=== PATIENT | male | born 1995 | race Caucasian/White ===

== ENCOUNTER 2019-10-13 18:05 | Emergency (ER) | payer OTHER, MEDICAID, SELFPAY ==
[2019-10-13 18:24] VITALS: BP 123/72; PULSE 55; RESP 18; TEMP 37; O2SAT 100
--- NOTE | 2019-10-13 18:28 | ED.GENADULT ---
HPI - General Adult General Chief complaint: Wound/Laceration Stated complaint: lac over right eye Time Seen by Provider: 10/13/19 18:28 Source: patient and family Mode of arrival: ambulatory Limitations: physical limitation (Patient has history of autism) History of Present Illness HPI narrative: 23-year-old male patient presents to the [facility] with complaints of a laceration over the right eye. Mother states that patient does have a history of autism and she is unsure exactly how he obtained a laceration. Mother states that she is unsure when his last tetanus shot was. Patient denies any lightheadedness, dizziness or vision changes. Related Data Home Medications Medication Instructions Recorded Confirmed No Home Medications 10/13/19 10/13/19 Allergies Allergy/AdvReac Type Severity Reaction Status Date / Time No Known Allergies Allergy Verified 10/13/19 18:37 Review of Systems Review of Systems: Narrative: CONSTITUTIONAL: Denies fever, chills, or sweats. EYES: Denies visual changes, redness, or discharge. ENT: Denies rhinorrhea, congestion, sore throat, or otalgia. CARDIOVASCULAR: Denies chest pain, palpitations, or edema. RESPIRATORY: Denies cough or dyspnea. GASTROINTESTINAL: Denies abdominal pain, nausea, vomiting, or diarrhea. GENITOURINARY: Denies dysuria or hematuria. SKIN: Denies rash or itching. Positive laceration over right eyebrow MUSCULOSKELETAL: Denies back pain, joint pain, or myalgia. NEUROLOGIC: Denies headache, numbness, or weakness. PSYCHIATRIC: Denies anxiety or depression. [facility] Past Medical History Medical History (Updated 10/13/19 @ 18:55 by IVA Srinivasan) Autistic disorder Social History Social History Gender identity (if verbalized by the patient): Male Comments At the time of my signature I agree with nursing past medical history, surgical, social, and family history. There is no relevant family history pertinent to the presenting complaint. Exam Narrative: Exam Narrative: GENERAL: Well-appearing, well-nourished, and in no acute distress. HEAD: Normocephalic, atraumatic. EYES: PERRLA and EOMI. ENT: Nares clear, no rhinorrhea or epistaxis. Mucous membranes moist. NECK: Supple. No lymphadenopathy CHEST: Clear to auscultation. No respiratory distress. HEART: Regular rate and rhythm. No murmur heard. Normal peripheral pulses. ABDOMEN: Soft, nontender, nondistended, normal active bowel sounds. EXTREMITIES: Normal range of motion. No edema. SKIN: Warm, dry, no rash. Patient has approximately 1.5 cm crescent-shaped laceration over the right eyebrow with a flap. Bleeding is controlled at this time. NEURO: No focal deficits. Alert and oriented x3. Course Vital Signs Vital signs: Vital Signs Temperature 37.0 C 10/13/19 18:24 Pulse Rate 55 L 10/13/19 18:24 Respiratory Rate 18 10/13/19 18:24 Blood Pressure 123/72 10/13/19 18:24 Pulse Oximetry 100 10/13/19 18:24 Temperature 37.0 C 10/13/19 18:24 Pulse Rate 55 L 10/13/19 18:24 Respiratory Rate 18 10/13/19 18:24 Blood Pressure 123/72 10/13/19 18:24 Pulse Oximetry 100 10/13/19 18:24 Vital signs reviewed. Procedures Laceration Laceration 1: Date: 10/13/19 Time: 18:40 Site: face Side (If applicable): right Size (cm): 1.5 Description: flap and irregular (Orlinda-shaped) Depth: simple, single layer Local Anesthetic: lidocaine 1% Amount of anesthesia used (mL): 2 Pre-repair: irrigated ====== Skin Level ====== Skin layer closed with: vicryl (Absorbable) Size (cm): 5-0 Number of sutures: 4 Technique: simple, interrupted ====== Subcutaneous Layer ====== ====== Muscle Layer ====== ====== Tendon Layer ====== Dressing: The Procedure was explained and verbal consent was obtained. The wound was anesthetized with 2 ml
[2019-10-13] MEDS: TETANUS,DIPHTHERIA,AC PERTUSSIS ADULT 0.5 ML (ADACEL) IM (18:39)
== END 2019-10-13 19:09 | disposition home or self-care (01) ==
PROVIDERS: Emergency Provider Nurse Practitioner Family; PCP Internal Medicine Infectious Disease
DX: S01.111A Laceration without foreign body of right eyelid and periocular area, initial encounter (principal); X58.XXXA Exposure to other specified factors, initial encounter; F84.0 Autistic disorder; Z23 Encounter for immunization
CPT/HCPCS: 12011; 90471; 90715; 99202; G0463